=== PATIENT | female | born 1980 | race Caucasian/White ===

== ENCOUNTER 2025-01-07 11:25 | Emergency (ER) | payer MEDICAID ==
[~2025-01-07] VITALS: Ht 165.1 cm; Wt 68.0 kg
[2025-01-07 11:27] VITALS: O2SAT 100
[2025-01-07 11:35] VITALS: BP 132/82; PULSE 120; RESP 15; TEMP 37; O2SAT 98
[2025-01-07 12:21] LABS: CHLORIDE 107 mEq/L (98-107); SODIUM 137 mEq/L (136-145)
[2025-01-07 12:22] LABS: CARBON DIOXIDE 20 mEq/L (21-32)
[2025-01-07 12:23] LABS: CALCIUM 9.3 mg/dL (8.7-10.4)
[2025-01-07 12:25] LABS: HEMOGLOBIN. 10.1 g/dL (12.0-16.0); MEAN CORPUSCULAR HEMOGLOBIN 26.6 pg (28.0-32.0); MEAN CORPUSCULAR HGB CONC 32.6 g/dL (31.0-37.0); MEAN CORPUSCULAR VOLUME 81.6 fL (81.0-99.0); MEAN PLATELET VOLUME 8.9 fl (7.4-10.4); PLATELET 348 x1000/uL (130-400); RED CELL DISTRIBUTION WIDTH 25.5 % (11.6-14.6); WHITE BLOOD COUNT 8.3 x1000/uL (4.5-11.0)
[2025-01-07 12:27] LABS: CREATININE 0.8 mg/dL (0.6-1.0); DIFFERENTIAL COMMENT 1; GLUCOSE 181 mg/dL (70-105)
[2025-01-07 12:28] LABS: UREA NITROGEN BLOOD 11 mg/dL (9-23)
[2025-01-07 12:46] LABS: CLARITY URINE HAZY (CLEAR); COLOR URINE YELLOW (YELLOW); GLUCOSE URINE NEGATIVE (NEGATIVE); KETONES URINE TRACE (NEGATIVE); OCCULT BLOOD URINE 3+ (NEGATIVE); PROTEIN URINE 1+ (NEGATIVE); SPECIFIC GRAVITY URINE 1.013 (1.005-1.030)
[2025-01-07 12:47] LABS: LEUKOCYTE ESTERASE URINE TRACE (NEGATIVE); NITRITE URINE NEGATIVE (NEGATIVE); UROBILINOGEN URINE 0.2 E.U./dL (0.2-1.0)
[2025-01-07] MEDS: SODIUM CHLORIDE 0.9% 1,000 ML IV ONE (13:00)
[2025-01-07 13:10] LABS: BACTERIA URINE TRACE; RBC URINE TNTC /hpf (0-2); SQUAMOUS EPITHELIAL CELL URINE RARE /lpf (RARE/1+)
[2025-01-07 13:12] LABS: WBC URINE 0-2 /hpf (0-2)
[2025-01-07 14:06] LABS: ANISOCYTOSIS 4+; PLATELET ESTIMATE NORMAL
[2025-01-07] MEDS: CEFTRIAXONE 1GM/50ML 50 ML IV NR (14:23)
== END 2025-01-07 14:51 | disposition home or self-care (01) ==
LOC: ER 11:25
DX: N94.6 Dysmenorrhea, unspecified (principal); D64.9 Anemia, unspecified; N39.0 Urinary tract infection, site not specified; I10 Essential (primary) hypertension; Z90.49 Acquired absence of other specified parts of digestive tract
CPT/HCPCS: 80048; 81003; 85025; 86850; 86900; 86901; 36415; 76856; 96361; 96365; 99284; J0696; J7030; Z7610; A4606